=== PATIENT | female | born 1965 | race Caucasian/White ===

== ENCOUNTER 2016-10-11 10:41 | Emergency (ER) | payer MEDICAID, OTHER ==
[~2016-10-11] VITALS: Ht 167.6 cm; Wt 77.1 kg
[2016-10-11] MEDS ORDERED: SODIUM CHLORIDE 0.9% 1,000 ML IV ONE (10:57)
[2016-10-11] MEDS ORDERED: diphenhdrAMINE HCL 50 MG/1 ML VL IV ONE (11:00)
[2016-10-11] MEDS ORDERED: LORazepam 2MG/ML-1ML VIAL IV ONE (11:00)
[2016-10-11 12:39] LABS: Albumin 4.2 g/dL (3.4-5.0); Anion Gap 13 (5-15); Aspartate Aminotransferase 23 U/L (15-37); BUN/Creatinine Ratio 17.8; Blood Urea Nitrogen 16 mg/dL (7-18); Calcium 9.3 mg/dL (8.5-10.1); Carbon Dioxide 19 mmol/L (21-32); Chloride 109 mmol/L (98-107); GFR African American 86 mL/min; GFR Non-African American 71 mL/min; Glucose 109 mg/dL (74-106); Potassium 3.5 mmol/L (3.5-5.1); Sodium 141 mmol/L (136-145)
[2016-10-11 12:42] LABS: Alkaline Phosphatase 117 U/L (45-117); Bilirubin, Total 0.5 mg/dL (0.2-1.0); Total Protein 8.1 g/dL (6.4-8.2)
[2016-10-11 13:07] VITALS: BP 148/88
[2016-10-11 13:51] LABS: Basophils # (auto) 0.1 uL; Basophils % (auto) 0.6 % (0.0-2.0); Eosinophils # (auto) 0.2 uL; Eosinophils % (auto) 1.3 % (0.0-7.0); Hematocrit 47.9 % (36.0-46.0); Lymphocytes # (auto) 3.8 uL; Lymphocytes % (auto) 27.5 % (10.0-50.0); Mean Corpuscular Hemoglobin 29.3 pg (28.0-32.0); Mean Corpuscular Hgb Conc. 33.4 g/dL (32.0-36.0); Mean Corpuscular Volume 87.8 fL (80.0-100.0); Mean Platelet Volume 9.9 fL (7.4-10.4); Monocytes # (auto) 0.8 uL; Monocytes % (auto) 5.7 % (0.0-12.0); Neutrophils % (auto) 64.9 % (37.0-80.0); Platelet Count (auto) 342 10^3/uL (140-450); Red Cell Distribution Width 13.7 % (11.6-16.0); SUSPECT VIEW TRANSMISSION; White Blood Cell 13.8 10^3/uL (4.4-10.8)
== END 2016-10-11 13:27 | disposition home or self-care (01) ==
LOC: EDBD 10:41 → ER 10:53
DX: F41.9 Anxiety disorder, unspecified (principal); F15.10 Other stimulant abuse, uncomplicated; F12.10 Cannabis abuse, uncomplicated; E11.9 Type 2 diabetes mellitus without complications; I10 Essential (primary) hypertension; K44.9 Diaphragmatic hernia without obstruction or gangrene; Z98.51 Tubal ligation status
CPT/HCPCS: 36415; 80053; 80320; 85025; 94761; 96361; 96374; 96375; 99284; J1200; J2060; J7030